=== PATIENT | male | born 1995 | race Two or more races ===

== ENCOUNTER 2025-10-30 09:13 | Outpatient (REF) | payer OTHER, SELFPAY ==
[2025-10-30 11:51] LABS: Anion Gap 10 (12-20); Blood Urea Nitrogen 15 mg/dL (9-16); Calcium 9.4 mg/dL (8.4-10.2); Carbon Dioxide 29 mmol/L (22-29); Chloride 105 mmol/L (96-108); Cholesterol 147 mg/dL (<200); Estimated Glomerular Filt Rate > 60; HDL Cholesterol 41 mg/dL (>40); Potassium 3.8 mmol/L (3.3-5.1); Sodium 140 mmol/L (135-145); Triglycerides 74 mg/dL (<150)
[2025-10-30 11:57] LABS: Reflex LDLD? No
[2025-10-30 12:45] LABS: Syphilis Screen Nonreactive (Nonreactive)
[2025-10-30 12:55] LABS: HBS Num1 177.91 mIU/mL (0-7.99); HBc Num1 0.13 S/CO (0.00-0.79); HBsAGNum1 0.41 S/CO (0.00-0.99); HIV Num 1 0.07 S/CO (0.00-0.99); Hepatitis A Antibody IgM 0.26 Index (0-0.79); Hepatitis B Surface Antigen Negative (Negative); ~HepC Num1 0.22 S/CO (0.00-0.79); ~Hepatitis A Antibody IgM Nonreactive (Nonreactive); ~Hepatitis B Surface Antibody REACTIVE (Nonreactive); ~Hepatitis C Antibody Nonreactive (Nonreactive)
== END 2025-10-30 09:14 | disposition home or self-care (01) ==
LOC: HO.HHCL 09:13
PROVIDERS: PCP Internal Medicine; Visit Provider Internal Medicine
DX: R03.0 Elevated blood-pressure reading, without diagnosis of hypertension (principal); R51.9 Headache, unspecified; G89.29 Other chronic pain; Z11.4 Encounter for screening for human immunodeficiency virus [HIV]; Z13.29 Encounter for screening for other suspected endocrine disorder; Z13.6 Encounter for screening for cardiovascular disorders
CPT/HCPCS: 36415; 80048; 80061; 84443; 86704; 86706; 86709; 86780; 86803; 87340; 87389